=== PATIENT | female | born 1990 | race American Indian/Alaskan Native ===

== ENCOUNTER 2017-09-09 15:27 | Emergency (ER) | payer MEDICAID ==
[2017-09-09] MEDS ORDERED: TYLENOL PO ONE ×2 (16:00→19:55)
[2017-09-09] MEDS ORDERED: BENADRYL PO ONE (19:55)
[2017-09-09] MEDS ORDERED: ZOFRAN ODT PO ONE (19:55)
--- NOTE | 2017-09-09 19:56 | Emergency Department Report ---
- General Chief Complaint: Upper Respiratory Infection Stated Complaint: FLU LIKE SYMPTOMS Time Seen by Provider: 09/09/17 19:04 Source: patient Mode of arrival: Ambulatory Limitations: No Limitations - History of Present Illness Initial Comments: 27F PMH asthma, eczema, 7 months p/w c/o 2-3 days of sore throat, runny nose, slight cough non productive per pt. Denies SON, CP, palps, abdominal pain, chills, nausea, vomiting, vaginal bleeding, dysruia, increased urinary frequency. Pt is AA0x3, states she has child at home with similar symptoms MD Complaint: cough, rhinorrhea, nasal congestion Onset/Timin -: days(s) Context: sick contacts Associated Symptoms: rhinorrhea, sore throat, cough Treatments Prior to Arrival: none - Related Data Previous Rx's Medication Instructions Recorded Last Taken Type Acetaminophen [Acetaminophen TAB] 500 mg PO Q6HR PRN #30 tablet 09/09/17 Unknown Rx Dextromethorphan/Benzocaine 1 each PO Q4H PRN #1 box 09/09/17 Unknown Rx [Cepacol Sorethroat-Cough Lico] Nitrofurantoin Monohyd/M-Cryst 100 mg PO BID #14 capsule 09/09/17 Unknown Rx [Macrobid 100 mg Capsule] Triamcinolone 0.1% [Kenalog 0.1% 1 applic TP TID PRN #1 tube 09/09/17 Unknown Rx CREAM] guaiFENesin DM [Guaifenesin Dm 10 ml PO Q6H PRN #1 syrup 09/09/17 Unknown Rx Syrup] Allergies Allergy/AdvReac Type Severity Reaction Status Date / Time fluticasone Allergy Swelling Verified 09/09/17 16:04 [From Advair Diskus] salmeterol Allergy Swelling Verified 09/09/17 16:04 [From Advair Diskus] ED Review of Systems ROS: Stated complaint: FLU LIKE SYMPTOMS Other details as noted in HPI Constitutional: denies: chills, fever Eyes: denies: eye pain, eye discharge, vision change ENT: throat pain, congestion. denies: ear pain Respiratory: denies: cough, shortness of breath, wheezing Cardiovascular: denies: chest pain, palpitations Endocrine: no symptoms reported Gastrointestinal: denies: abdominal pain, nausea, diarrhea Genitourinary: denies: urgency, dysuria, discharge Musculoskeletal: denies: back pain, joint swelling, arthralgia Skin: denies: rash, lesions Neurological: denies: headache, weakness, paresthesias Psychiatric: denies: anxiety, depression Hematological/Lymphatic: denies: easy bleeding, easy bruising ED Past Medical Hx - Past Medical History Additional medical history: eczema, syncope - Surgical History Additional Surgical History: tonsillectomy - Social History Smoking Status: Current Every Day Smoker Substance Use Type: None - Medications Home Medications: Home Medications Medication Instructions Recorded Confirmed Last Taken Type Acetaminophen [Acetaminophen TAB] 500 mg PO Q6HR PRN #30 tablet 09/09/17 Unknown Rx Dextromethorphan/Benzocaine 1 each PO Q4H PRN #1 box 09/09/17 Unknown Rx [Cepacol Sorethroat-Cough Lico] Nitrofurantoin Monohyd/M-Cryst 100 mg PO BID #14 capsule 09/09/17 Unknown Rx [Macrobid 100 mg Capsule] Triamcinolone 0.1% [Kenalog 0.1% 1 applic TP TID PRN #1 tube 09/09/17 Unknown Rx CREAM] guaiFENesin DM [Guaifenesin Dm 10 ml PO Q6H PRN #1 syrup 09/09/17 Unknown Rx Syrup] ED Physical Exam - General Limitations: No Limitations General appearance: alert, in no apparent distress - Head Head exam: Present: atraumatic, normocephalic - Eye Eye exam: Present: normal appearance, PERRL, EOMI - ENT ENT exam: Present: normal exam (NO exudates no tedner anteriro cervical adenopathy), mucous membranes moist - Neck Neck exam: Present: normal inspection, full ROM - Respiratory Respiratory exam: Present: normal lung sounds bilaterally. Absent: respiratory distress - Cardiovascular Cardiovascular Exam: Present: regular rate, normal rhythm. Absent: systolic murmur, diastolic murmur, rubs, gallop - GI/Abdominal GI/Abdominal exam: Present: soft (gravid abdomen), normal bowel sounds - Extremities Exam Extremities exam: Present: normal inspection - Back Exam Back exam: Present: normal inspection - Neurological Exam Neurological exam: Present: alert, oriented X3 - Psychiatric Psychiatric exam: Present: normal affect, normal mood - Skin Skin exam: Present: warm, dry, intact, normal color. Absent: rash ED Course Vital Signs 09/09/17 09/09/17 15:56 21:50 Temperature 98.5 F 98.9 F Pulse Rate 100 H 99 H Respiratory 20 18 Rate Blood Pressure 143/92 Blood Pressure 145/84 [Right] O2 Sat by Pulse 100 99 Oximetry ED Medical Decision Making - Medical Decision Making A/P: viral syndrome, possible asymptomatic bacteria 1- flue and rsv negative, no clinical signs of strep throat, Centor criteria 0 points 1% - 2.5% likelihood of strep. No further testing nor antibiotics. https: [email or web address] 2- some leukocyte esterase, as pt is pregannt will treat empirically with macrobid 3-symptomatic tx for viral URI with meds that a safe during 4- pt requesting refill on kenaolg for her eczema Critical care attestation.: If time is entered above; I have spent that time in minutes in the direct care of this critically ill patient, excluding procedure time. ED Disposition Clinical Impression: Viral syndrome Upper respiratory infection Qualifiers: URI type: unspecified viral URI Qualified Code(s): J06.9 - Acute upper respiratory infection, unspecified Disposition: TO HOME OR SELFCARE Is pt being admited?: No Does the pt Need Aspirin: No Condition: Stable Instructions: Upper Respiratory Infection (ED), Viral Syndrome (ED), Cold Symptoms (ED) Prescriptions: Acetaminophen [Acetaminophen TAB] 500 mg PO Q6HR PRN #30 tablet PRN Reason: Fever Dextromethorphan/Benzocaine [Cepacol Sorethroat-Cough Lico] 1 each PO Q4H PRN #1 box PRN Reason: Sore Throat guaiFENesin DM [Guaifenesin Dm Syrup] 10 ml PO Q6H PRN #1 syrup PRN Reason: Cough Nitrofurantoin Monohyd/M-Cryst [Macrobid 100 mg Capsule] 100 mg PO BID #14 capsule Triamcinolone 0.1% [Kenalog 0.1% CREAM] 1 applic TP TID PRN #1 tube PRN Reason: Skin Irritation Referrals: [facility] [Outside] - 3-5 Days [facility] [Outside] - 3-5 Days Forms: Accompanied Note, Work/School Release Form(ED) Time of Disposition: 21:27
[2017-09-09 20:38] LABS: Bilirubin,Urine NEG (Negative); Blood,Urine SM (Negative); Color,Urine Straw (Yellow); Nitrite,Urine NEG (Negative); Protein,Urine <15 mg/dL mg/dL (Negative); Urobilinogen,Urine < 2.0 mg/dL (<2.0)
[2017-09-09 22:07] VITALS: BP 145/84
== END 2017-09-09 21:50 | disposition home or self-care (01) ==
LOC: ED 15:27
DX: B34.9 Viral infection, unspecified (principal); J06.9 Acute upper respiratory infection, unspecified; F17.200 Nicotine dependence, unspecified, uncomplicated; Z88.8 Allergy status to other drugs, medicaments and biological substances
CPT/HCPCS: 81001; 87400; 87491; 99283; Q0162